=== PATIENT | female | born 1965 | race African-American/Black ===

== ENCOUNTER 2019-10-21 16:47 | Emergency (ER) | payer OTHER ==
[~2019-10-21] VITALS: Ht 160 cm; Wt 84.5 kg
--- NOTE | 2019-10-21 16:52 | NUR ---
EKG DONE IN TRIAGE
--- NOTE | 2019-10-21 17:08 | NUR ---
PATIENT ARRIVES WITH MIDSTERNAL CHEST PAIN THAT BEGAN WANDA. SHE DESCRIBES IT PRESSURE AND STATES IT RADIATES TO JAW BILATERALLY. SHE STATES SHE CAN FEEL PALPATATIONS. HER ONLY MEDICAL HISTORY IS HIGH CHOLESTEROL. 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
[2019-10-21 17:27] LABS: BASOPHILS # (AUTO) 0.07 x10^3/uL (0-0.1); BASOPHILS % (AUTO) 1 % (0-1); EOSINOPHILS # (AUTO) 0.17 x10^3/uL (0-0.4); EOSINOPHILS % (AUTO) 2 % (1-7); LYMPHOCYTES # (AUTO) 3.68 x10^3/uL (1-3.4); LYMPHOCYTES % (AUTO) 37 % (22-44); MD NO; MEAN CORPUSCULAR HEMOGLOBIN 30.2 pg (27.0-34.8); MEAN CORPUSCULAR HGB CONC 33.6 g/dL (32.4-35.8); MEAN CORPUSCULAR VOLUME 89.9 fL (80-100); MEAN PLATELET VOLUME 9.4 fL (7.4-10.4); MONOCYTES # (AUTO) 0.77 x10^3/uL (0.2-0.8); MONOCYTES % (AUTO) 8 % (2-9); NEUTROPHILS # (AUTO) 5.32 x10^3/uL (1.8-6.8); NEUTROPHILS % (AUTO) 53 % (42-75); PLATELET COUNT 217 x10^3/uL (130-400); RED BLOOD COUNT 5.12 x10^6/uL (3.82-5.3); RED CELL DISTRIBUTION WIDTH 13.4 % (9.6-15.2)
[2019-10-21 17:33] LABS: ALBUMIN 4.2 g/dL (3.4-5.0); ANION GAP 6 mmol/L (5-15); CALCIUM 9.3 mg/dL (8.5-10.1); CHLORIDE 106 mmol/L (98-107); CREATININE 1.03 mg/dL (0.55-1.02)
--- NOTE | 2019-10-21 17:37 | NUR ---
brother arrived. olsen to talk to . Addendum: 10/21/19 at 1737 by ROGELIO patient in bed rails up
[2019-10-21 17:38] LABS: TROPONIN I < 0.015 ng/mL (0.000-0.045)
[2019-10-21 18:10] VITALS: BP 128/78
[2019-10-21] MEDS ORDERED: ASPIRIN 81 MG TABLET CHEW PO ONE (18:30)
== END 2019-10-21 18:16 | disposition home or self-care (01) ==
LOC: ED 17:24
DX: R07.89 Other chest pain (principal); R00.0 Tachycardia, unspecified
CPT/HCPCS: 36415; 71046; 80048; 82040; 84443; 84484; 85025; 93005; 99285